=== PATIENT | female | born 1995 | race Asian ===

== ENCOUNTER 2016-10-26 10:21 | Emergency (ER) | payer OTHER ==
[~2016-10-26] VITALS: Ht 147.3 cm; Wt 45.9 kg
[2016-10-26] MEDS ORDERED: SODIUM CHLORIDE 0.9% 1,000ML IVBOLUS ONE (11:00)
[2016-10-26] MEDS ORDERED: SODIUM CHLORIDE FLUSH 10ML SYR IVF ONE (11:00)
[2016-10-26 11:14] LABS: HEMATOCRIT 26.8 % (34.6-47.8); HEMOGLOBIN 8.5 g/dL (11.7-16.4); WHITE BLOOD COUNT 8.6 x10^3/uL (4.5-13.2)
[2016-10-26 11:26] LABS: BLOOD UREA NITROGEN 6 mg/dL (7-18)
[2016-10-26 12:01] VITALS: BP 116/70
== END 2016-10-26 12:35 | disposition home or self-care (01) ==
LOC: ED 10:46
DX: O99.012 Anemia complicating pregnancy, second trimester (principal); O99.512 Diseases of the respiratory system complicating pregnancy, second trimester; J45.909 Unspecified asthma, uncomplicated; Z3A.23 23 weeks gestation of pregnancy
CPT/HCPCS: 36415; 80048; 82040; 85025; 93005; 96360; 99285; J7030